=== PATIENT | female | born 1950 | race Caucasian/White ===

== ENCOUNTER 2017-02-06 05:44 | Inpatient (IN) | payer MEDICARE ==
[~2017-02-06] VITALS: Ht 167.6 cm; Wt 118.0 kg
[2017-02-06] MEDS ORDERED: PRED10TA PO (06:17)
[2017-02-06] MEDS ORDERED: CHOL100015 PO (06:17)
[2017-02-06] MEDS ORDERED: LOSA25TA5 PO (06:17)
[2017-02-06] MEDS ORDERED: ANTIBIOTIC (06:17)
[2017-02-06] MEDS ORDERED: HYDR12.58 PO (06:17)
[2017-02-06 06:49] LABS: BLOOD UREA NITROGEN 33 mg/dL (7-18)
[2017-02-06] MEDS ORDERED: ONDANSETRON 2MG/ML, 2ML ONE ×2 (07:38→13:23)
[2017-02-06] MEDS ORDERED: MORPHINE SULFATE 4 MG/ML, 1ML ONE (07:38)
[2017-02-06] MEDS ORDERED: OMNIPAQUE 350 MG/ML, 150 ML BOTTLE ONE (07:52)
[2017-02-06] MEDS ORDERED: ONDANSETRON 2MG/ML, 2ML IVPush ONE (08:00)
[2017-02-06] MEDS ORDERED: MORPHINE SULFATE 4 MG/ML, 1ML IVPush PRN (08:00)
[2017-02-06] MEDS ORDERED: HEPARIN 5,000 UNITS/ML, 1ML ONE (08:37)
[2017-02-06] MEDS ORDERED: HEPARIN 25,000 UNITS/500ML PMX 500 ML ONE (08:37)
[2017-02-06] MEDS ORDERED: HEPARIN 25,000 UNITS/500ML PMX 500 ML IV PRN (09:00)
[2017-02-06] MEDS ORDERED: HEPARIN 5,000 UNITS/ML, 1ML IV ONE (09:00)
[2017-02-06] MEDS ORDERED: HEPARIN 5,000 UNITS/ML, 1ML IV PRN (09:00)
[2017-02-06] MEDS ORDERED: morphine SULFATE 10 MG/ML, 1ML IVPush PRN (11:30)
[2017-02-06] MEDS ORDERED: BISACODYL 10 MG SUPP PR PRN (11:30)
[2017-02-06] MEDS ORDERED: POLYETHYLENE GLYCOL 17 GM PACKET PO PRN (11:30)
[2017-02-06] MEDS ORDERED: ACETAMINOPHEN 325 MG TABLET PO PRN ×3 (11:30→17:00)
[2017-02-06] MEDS ORDERED: PROTAMINE SULFATE 10 MG/ML, 5ML ONE ×2 (12:25→12:31)
[2017-02-06] MEDS ORDERED: LIDOCAINE/PF 1%, 30ML ONE (12:25)
[2017-02-06] MEDS ORDERED: BACITRACIN 50,000 UNIT ONE (12:25)
[2017-02-06] MEDS ORDERED: HEPARIN 1,000 UNITS/ML, 10ML ONE (12:25)
[2017-02-06] MEDS ORDERED: THROMBIN 5,000 UNIT VIAL TP ONE (12:26)
[2017-02-06] MEDS ORDERED: PAPAVERINE 30 MG/ML, 2ML ONE (12:31)
[2017-02-06] MEDS ORDERED: BUPIVACAINE/PF-EPI 0.5% 1:200K ONE (12:31)
[2017-02-06] MEDS ORDERED: MIDAZOLAM 1 MG/ML, 2ML ONE (13:06)
[2017-02-06] MEDS ORDERED: FENTANYL PF 250 MCG/5ML ONE (13:06)
[2017-02-06] MEDS ORDERED: PHENYLEPHRINE 10 MG/ML ONE (13:23)
[2017-02-06] MEDS ORDERED: PROPOFOL 10 MG/ML, 20ML ONE (13:23)
[2017-02-06] MEDS ORDERED: DEXAMETHASONE 4 MG/ML, 1ML ONE (13:23)
[2017-02-06] MEDS ORDERED: CEFAZOLIN 1,000 MG ONE (13:23)
[2017-02-06] MEDS ORDERED: ALBUTEROL SULFATE 2.5 MG/3 ML NPPB PRN (14:30)
[2017-02-06] MEDS ORDERED: hydrALAzine 20 MG/ML, 1ML IV PRN ×2 (14:30→17:30)
[2017-02-06] MEDS ORDERED: MIDAZOLAM 1 MG/ML, 2ML IV PRN (14:30)
[2017-02-06] MEDS ORDERED: PROMETHAZINE 25 MG/ML, 1ML IV PRN (14:30)
[2017-02-06] MEDS ORDERED: ONDANSETRON 2MG/ML, 2ML IVPush PRN (14:30)
[2017-02-06] MEDS ORDERED: MEPERIDINE/PF 25MG/0.5ML IVPush PRN (14:30)
[2017-02-06] MEDS ORDERED: LABETALOL 5MG/ML, 20ML IV PRN (14:30)
[2017-02-06] MEDS ORDERED: OXYcodone 5 MG/5 ML ORAL.SOL UDC PO PRN (14:30)
[2017-02-06] MEDS ORDERED: FENTANYL PF 100 MCG/2ML IV PRN (14:30)
[2017-02-06] MEDS ORDERED: hydrALAzine 20 MG/ML, 1ML ONE (15:44)
[2017-02-06] MEDS: HYDROmorphone 1 MG/ML, 1ML IV PRN ×2 (15:46→16:12)
[2017-02-06] MEDS ORDERED: HYDROmorphone 1 MG/ML, 1ML ONE (15:50)
[2017-02-06] MEDS ORDERED: OXYcodone 5 MG/5 ML ORAL.SOL UDC ONE (15:51)
[2017-02-06] MEDS: ASPIRIN 81 MG TABLET CHEW PO SCH (15:53)
[2017-02-06] MEDS ORDERED: HYDROcodone/APAP 5/325 TABLET PO PRN (17:00)
[2017-02-06] MEDS: HEPARIN 25,000 UNITS/500ML PMX 500 ML IV SCH (17:00)
[2017-02-06] MEDS ORDERED: MORPHINE SULFATE 4 MG/ML, 1ML IV PRN (17:00)
[2017-02-06] MEDS ORDERED: ONDANSETRON 2MG/ML, 2ML IV PRN (17:30)
[2017-02-06] MEDS ORDERED: WARFARIN 5 MG TABLET PO-COUM ONE (18:00)
[2017-02-06] MEDS: SODIUM CHLORIDE 0.9% 1,000 ML IV SCH ×2 (19:07→19:59)
[2017-02-06 19:15] VITALS: BP 110/68
[2017-02-06] MEDS ORDERED: DOCUSATE 100 MG CAPSULE PO PRN (21:00)
[2017-02-06] MEDS: CEFAZOLIN PMX 2GM/50ML 50 ML IVPB SCH (21:26)
[2017-02-07] MEDS ORDERED: CEFD300C37 PO (01:13)
[2017-02-07 01:47] VITALS: BP 100/62
[2017-02-07] MEDS: CEFAZOLIN PMX 2GM/50ML 50 ML IVPB SCH ×2 (04:58→12:32)
[2017-02-07 05:00] LABS: PATH.CAST-FLAG NOT PRESENT; SPERM-FLAG NOT PRESENT; SRC-FLAG NOT PRESENT; XTAL-FLAG NOT PRESENT; YLC-FLAG NOT PRESENT
[2017-02-07 06:31] LABS: ASPARTATE AMINO TRANSFERASE 848 U/L (15-37); BLOOD UREA NITROGEN 28 mg/dL (7-18)
[2017-02-07 09:00] VITALS: BP 112/49
[2017-02-07] MEDS ORDERED: CEFDINIR 300 MG CAPSULE PO SCH (09:00)
[2017-02-07] MEDS: CEFDINIR 300 MG CAPSULE PO SCH ×2 (09:32→20:32)
[2017-02-07] MEDS: SODIUM CHLORIDE 0.9% 1,000 ML IV SCH (10:00)
[2017-02-07 11:02] LABS: ASPARTATE AMINO TRANSFERASE 590 U/L (15-37); BLOOD UREA NITROGEN 26 mg/dL (7-18)
[2017-02-07 14:27] VITALS: BP 139/85
[2017-02-07] MEDS: HEPARIN 25,000 UNITS/500ML PMX 500 ML IV SCH (17:31)
[2017-02-07] MEDS ORDERED: WARFARIN 5 MG TABLET PO-COUM SCH (18:00)
[2017-02-07 20:20] VITALS: BP 119/75
[2017-02-07] MEDS: ENOXAPARIN 120MG/0.8ML SQ SCH (20:32)
[2017-02-08] MEDS: SODIUM CHLORIDE 0.9% 1,000 ML IV SCH (01:17)
[2017-02-08 02:32] VITALS: BP 96/60
[2017-02-08 05:34] LABS: ASPARTATE AMINO TRANSFERASE 193 U/L (15-37); BLOOD UREA NITROGEN 26 mg/dL (7-18)
[2017-02-08 07:10] VITALS: BP 130/76
[2017-02-08] MEDS: ENOXAPARIN 120MG/0.8ML SQ SCH ×2 (08:11→20:30)
[2017-02-08] MEDS: ASPIRIN 81 MG TABLET CHEW PO SCH (08:12)
[2017-02-08] MEDS: CEFDINIR 300 MG CAPSULE PO SCH ×2 (08:12→20:30)
[2017-02-08 14:10] VITALS: BP 119/61
[2017-02-08] MEDS ORDERED: WARFARIN 2.5 MG TABLET PO-COUM ONE (18:00)
[2017-02-08 19:51] VITALS: BP 126/78
[2017-02-09 03:59] VITALS: BP 118/71
[2017-02-09 05:07] LABS: BLOOD UREA NITROGEN 23 mg/dL (7-18)
[2017-02-09 05:11] LABS: ASPARTATE AMINO TRANSFERASE 64 U/L (15-37)
[2017-02-09 07:07] VITALS: BP 151/77
[2017-02-09] MEDS: ASPIRIN 81 MG TABLET CHEW PO SCH (07:52)
[2017-02-09] MEDS: CEFDINIR 300 MG CAPSULE PO SCH (07:52)
[2017-02-09] MEDS: ENOXAPARIN 120MG/0.8ML SQ SCH (07:52)
[2017-02-09] MEDS ORDERED: LIDOCAINE 1%, 10ML INFIL ONE (10:00)
[2017-02-09] MEDS ORDERED: ENOX100S5 SQ (11:58)
[2017-02-09] MEDS ORDERED: WARF2.5T73 PO (11:58)
== END 2017-02-09 14:36 | disposition home or self-care (01) | DRG 270 ==
LOC: ED 06:27 → EDIP 09:28 → 4WST 16:28 → 5SO 18:40
PROC: 03C80ZZ Extirpation of Matter from Left Brachial Artery, Open Approach (ICD-10-PCS; 2017-02-06)
PROC: 03CA0ZZ Extirpation of Matter from Left Ulnar Artery, Open Approach (ICD-10-PCS; 2017-02-06)
PROC: B31J1ZZ Fluoroscopy of Left Upper Extremity Arteries using Low Osmolar Contrast (ICD-10-PCS; 2017-02-06)
PROC: 03C Upper Arteries, Extirpation (ICD-10-PCS; principal; 2017-02-06 12:30)
DX: I74.2 Embolism and thrombosis of arteries of the upper extremities (principal); N17.0 Acute kidney failure with tubular necrosis; Z68.41 Body mass index [BMI] 40.0-44.9, adult; D72.829 Elevated white blood cell count, unspecified; M19.90 Unspecified osteoarthritis, unspecified site; E66.9 Obesity, unspecified; E78.5 Hyperlipidemia, unspecified; I10 Essential (primary) hypertension; I70.8 Atherosclerosis of other arteries; Z66 Do not resuscitate; Z82.49 Family history of ischemic heart disease and other diseases of the circulatory system; Z87.891 Personal history of nicotine dependence; Z91.048 Other nonmedicinal substance allergy status
CPT/HCPCS: 36415; 75710; 76700; 80048; 80053; 81001; 82040; 82550; 83735; 84100; 84443; 85025; 85520; 85610; 85730; 86704; 86706; 86708; 86803; 87040; 87340; 93005; 93306; 96365; 96366; 96375; C1894; J0690; J1100; J1170; J1644; J1650; J2250; J2405; J2704; J2720; J3010; J3490; Q9967; C1751; C1757; C1769; J0360; J2370; J2440; J7030; J7512

== ENCOUNTER 2017-02-10 12:11 | Emergency (ER) | payer MEDICARE ==
[~2017-02-10] VITALS: Ht 167.6 cm; Wt 120.8 kg
[~2017-02-10 12:11] MED LIST: ANTIBIOTIC; CEFD300C37 PO; CHOL100015 PO; ENOX100S5 SQ; HYDR12.58 PO; LOSA25TA5 PO; PRED10TA PO; WARF2.5T73 PO
[2017-02-10 15:18] VITALS: BP 140/78
== END 2017-02-10 15:35 | disposition home or self-care (01) ==
LOC: ED 14:09
DX: M96.831 Postprocedural hemorrhage of a musculoskeletal structure following other procedure (principal); Z79.01 Long term (current) use of anticoagulants; I10 Essential (primary) hypertension; Z90.49 Acquired absence of other specified parts of digestive tract
CPT/HCPCS: 36415; 85025; 85610; 85730; 99285